=== PATIENT | female | born 1995 | race Caucasian/White ===

== ENCOUNTER 2022-12-11 19:48 | Emergency (ER) | payer MEDICAID ==
[~2022-12-11] VITALS: Ht 165.1 cm; Wt 54.0 kg
[2022-12-11 20:03] VITALS: BP 130/73; TEMP 97.4; O2SAT 100
[2022-12-11] MEDS ORDERED: FAMOTIDINE 20MG/2ML VIAL IV STA (20:46)
[2022-12-11] MEDS ORDERED: ONDANSETRON HCL 4MG/2ML INJ IV STA (20:46)
[2022-12-11] MEDS ORDERED: SODIUM CHLORIDE 0.9% 1,000 ML IV ONE (21:00)
[2022-12-11 21:24] LABS: BASOPHILS % 0.9 % (0.0-2.0); EOSINOPHILS % 0.1 % (0.0-5.0); HEMATOCRIT. 39.8 % (36.0-48.0); HEMOGLOBIN. 13.8 g/dL (12.0-16.0); LYMPHOCYTES % 11.7 % (20.0-50.0); MEAN CORPUSCULAR HEMOGLOBIN 33.7 pg (28.0-32.0); MEAN CORPUSCULAR HGB CONC 34.6 g/dL (31.0-37.0); MEAN CORPUSCULAR VOLUME 97.4 fL (81.0-99.0); MEAN PLATELET VOLUME 7.4 fl (7.4-10.4); MONOCYTES % 7.7 % (2.0-8.0); NEUTROPHILS % 79.6 % (40.0-76.0); PLATELET 284 x1000/uL (130-400); RED BLOOD CELL COUNT 4.08 mill/uL (4.2-5.4); WHITE BLOOD COUNT 7.6 x1000/uL (4.5-11.0)
[2022-12-11 21:34] LABS: CHLORIDE 99 mEq/L (98-107); INDEX HEMOLYSI 1 (1-3); INDEX ICTERIC 1 (1-4); INDEX LIPEMIC 1 (1-3); POTASSIUM 3.7 mEq/L (3.5-5.1); SODIUM 134 mEq/L (136-145)
[2022-12-11 21:37] LABS: HCG SCREEN NEGATIVE
[2022-12-11 21:43] LABS: ALANINE AMINOTRANSFERASE 146 IU/L (13-61); ALBUMIN 4.5 g/dL (3.4-5.0); ASPARTATE AMINOTRANSFERASE 124 IU/L (15-37); BILIRUBIN TOTAL 0.9 mg/dL (0.1-1.0); CALCIUM 9.5 mg/dL (8.5-10.1); CARBON DIOXIDE 26 mEq/L (21-32); CREATININE 0.5 mg/dL (0.6-1.3); GLUCOSE 95 mg/dL (70-105); PROTEIN TOTAL 8.1 g/dL (6.0-8.3); UREA NITROGEN BLOOD 9 mg/dL (7-21)
[2022-12-12] MEDS ORDERED: ONDANSETRON HCL 4MG/2ML INJ IV NR (00:15)
[2022-12-12] MEDS ORDERED: FAMOTIDINE 20MG/2ML VIAL IV NR (00:15)
[2022-12-12 02:25] VITALS: PULSE 89; RESP 18
[2022-12-12] MEDS ORDERED: FAMO-135 PO (02:27)
== END 2022-12-12 03:38 | disposition home or self-care (01) ==
LOC: ER 19:48
DX: R10.12 Left upper quadrant pain (principal); R11.2 Nausea with vomiting, unspecified; R79.89 Other specified abnormal findings of blood chemistry; F10.229 Alcohol dependence with intoxication, unspecified; F41.9 Anxiety disorder, unspecified; Y90.0 Blood alcohol level of less than 20 mg/100 ml
CPT/HCPCS: 80053; 84703; 83690; 85025; 36415; 76705; 96361; 96374; 96375; 99285; J7030; J3490; J2405; Z7610 ×2